=== PATIENT | male | born 1965 | race Two or more races ===

== ENCOUNTER 2019-06-27 14:06 | Outpatient (CLI) | payer MEDICAID, OTHER ==
[~2019-06-27 14:06] MED LIST: DEPAKOTE250 MG PO; DESVENLAFAXINE100 MG ORAL; DOCUSATE SODIU100 MG ORAL; FIBER TABS625 MG PO; FLOMAX0.4 MG ORAL; LORATADINE10 M2 PO; METHOCARBAMOL750 MG ORAL; PROPRANOLOL HCL80 M1 ORAL; RIBOFLAVIN100 MG PO; SUMATRIPTAN SUC25 MG PO; VITAMIN D1000 UNI1 ORAL
[2019-06-27 14:37] VITALS: BP 130/71
--- NOTE | 2019-06-27 14:51 | General Progress Note ---
Assessment/Plan Assessment/Plan: constipation GERD s/p colonoscopy trial of omeprazole and linzess 145 Subjective ROS Limited/Unobtainable: Yes Allergies: Coded Allergies: No Known Allergies (Unverified , 02/01/19) Objective Last 24 Hour Vital Signs Date Time Temp Pulse Resp B/P (MAP) Pulse Ox O2 Delivery O2 Flow Rate FiO2 06/27/19 14:37 96.7 18 130/71 (90) 95 General Appearance: alert EENT: normal ENT inspection Neck: normal alignment Cardiovascular: normal peripheral pulses Respiratory/Chest: chest wall non-tender Abdomen: normal bowel sounds, non tender, soft Extremities: non-tender Juan Antonio Bethea MD Jun 27, 2019 14:51
== END 2019-06-27 16:06 | disposition home or self-care (01) ==
LOC: PAN 14:06
DX: K59.00 Constipation, unspecified (principal); K21.9 Gastro-esophageal reflux disease without esophagitis
CPT/HCPCS: 99212